=== PATIENT | male | born 2000 | race Caucasian/White ===

== ENCOUNTER → 2021-03-14 | Outpatient (CLI) | payer OTHER ==
[2021-03-14 10:36] LABS: BASO % 0.3 % (0.0-2.0); EOS % 0.2 % (0-4.0); GRAN # 9.1 (1.4-6.5); GRAN % 79.4 % (42.2-75.2); HEMATOCRIT 45.6 % (42.0-52.0); HEMOGLOBIN 14.7 g/dl (13.5-18.0); LYMPH # 1.4 (1.2-3.4); LYMPH % 11.9 % (20.0-51.0); MEAN CELL VOLUME 88 fl (80.0-100.0); MEAN CORPUSCULAR HEMOGLOBIN 28 pg (27.0-31.0); MEAN CORPUSCULAR HGB CONC 32 g/dl (33.0-37.0); MEAN PLATELET VOLUME 9.7 fl (7.4-10.4); MONO # 0.9 (0.1-0.6); MONO % 7.9 % (1.7-9.3); PLATELET COUNT 376 K/mm3 (130-400); RED BLOOD COUNT 5.18 M/mm3 (4.20-5.60); REDCELL DISTRIBUTION WIDTH-CV 12.4 % (11.5-14.5)
[2021-03-14 11:05] LABS: ERYTHROCYTE SEDIMENTATION RATE 20 mm/hr (0-15)
== END ==
LOC: COL.LAB 09:38
PROVIDERS: Orthopaedic Surgery
DX: M24.852 Other specific joint derangements of left hip, not elsewhere classified (principal)

== ENCOUNTER → 2021-03-15 | Outpatient (CLI) | payer OTHER ==
[2021-03-15 15:33] LABS: GLUCOSE,SYNOVIAL FLUID < 20 mg/dL; TOTAL PROTEIN,SYNOVIAL FLUID < 2.0 gm/dL
[2021-03-15 16:05] LABS: SYNOVIAL FL. MONONUCLEAR 46.4 % (0-75); SYNOVIAL FLUID RBC 75000 /mm3 (0-0); SYNOVIAL FLUID WBC 295 /mm3 (200-600)
[2021-03-15 16:18] LABS: SYNOVIAL FLUID APPEARANCE TURBID; SYNOVIAL FLUID COLOR PINK
== END ==
LOC: COL.RAD 13:25
PROVIDERS: Orthopaedic Surgery
DX: M24.852 Other specific joint derangements of left hip, not elsewhere classified (principal)